=== PATIENT | female | born 1980 | race American Indian/Alaskan Native ===

== ENCOUNTER 2016-12-09 08:38 | Emergency (ER) | payer BC ==
[~2016-12-09] VITALS: Ht 172.7 cm; Wt 117.9 kg
== END 2016-12-09 09:03 | disposition home or self-care (01) ==
LOC: ED 08:38
DX: J03.00 Acute streptococcal tonsillitis, unspecified (principal)
CPT/HCPCS: 99281

== ENCOUNTER 2019-06-12 10:09 | Outpatient (CLI) | payer OTHER | END 2019-06-12 21:47 | disposition home or self-care (01) | LOC: MAMMO 10:09 | DX: N63.10 Unspecified lump in the right breast, unspecified quadrant (principal) ==

== ENCOUNTER 2019-12-03 08:11 | Outpatient (CLI) | payer OTHER | END 2019-12-03 19:10 | disposition home or self-care (01) | LOC: MAMMO 08:11 | DX: Z12.31 Encounter for screening mammogram for malignant neoplasm of breast (principal); R92.8 Other abnormal and inconclusive findings on diagnostic imaging of breast | CPT/HCPCS: G0279 ==

== ENCOUNTER 2020-11-02 10:46 | Outpatient (CLI) | payer OTHER | END 2020-11-02 23:59 | disposition home or self-care (01) | LOC: INF 10:46 | PROVIDERS: ATTEND Internal Medicine | DX: Z23 Encounter for immunization (principal) | CPT/HCPCS: 96372 ==

== ENCOUNTER 2020-11-14 09:25 | Outpatient (CLI) | payer OTHER | END 2020-11-14 19:16 | disposition home or self-care (01) | LOC: LAB 09:25 | PROVIDERS: ATTEND Internal Medicine | DX: Z20.828 Contact with and (suspected) exposure to other viral communicable diseases (principal) | CPT/HCPCS: 87635; G2023; U0003 ==

== ENCOUNTER 2020-11-30 09:54 | Outpatient (CLI) | payer OTHER | END 2020-11-30 21:44 | disposition home or self-care (01) | LOC: INF 09:54 | PROVIDERS: ATTEND Internal Medicine | DX: Z23 Encounter for immunization (principal) | CPT/HCPCS: 96372 ==

== ENCOUNTER 2021-04-06 20:00 | Emergency (ER) | payer OTHER | END 2021-04-06 22:20 | disposition home or self-care (01) | LOC: ED 20:00 | DX: M79.661 Pain in right lower leg (principal) | CPT/HCPCS: 36415; 85379; 85610; 99283 ==